=== PATIENT | female | born 1965 | race Caucasian/White ===

== ENCOUNTER 2021-01-15 15:10 | Outpatient (CLI) | payer OTHER, SELFPAY ==
--- NOTE | ~2021-01-15 | MM_ITS ---
EXAMINATION: MM screening [facility] BI w [facility] HISTORY: Screening mammogram TECHNIQUE: Craniocaudal and mediolateral oblique 3-D tomosynthesis images were obtained and synthetic 2-D images were generated. CAD analysis was submitted and interpreted. COMPARISON: 08/11/2017, 08/03/2012, 11/23/2009 BREAST PARENCHYMAL COMPOSITION: There are scattered areas of fibroglandular density. FINDINGS: There is no evidence of suspicious mass, calcification, or architectural distortion to sugg est malignancy in either breast. There has been no suspicious interval change. IMPRESSION: 1. No mammographic evidence of malignancy. 2. Recommend routine screening mammography in one year. BI-RADS Category 1: Negative Reviewed, dictated and finalized at location A.
== END 2021-01-15 15:11 | disposition home or self-care (01) ==
PROVIDERS: PCP Family Medicine; Visit Provider Family Medicine
DX: Z12.31 Encounter for screening mammogram for malignant neoplasm of breast (principal)
CPT/HCPCS: 77063; 77067

== ENCOUNTER 2021-03-11 01:20 | Day surgery (SDC) | payer OTHER, SELFPAY ==
[2021-02-27 12:37] VITALS: BMI 24.1
--- NOTE | 2021-03-11 07:03 | WPDANESEPPF ---
Anes - Initial Pre Proc Eval Procedure: Operation Date: 03/11/21 09:30 Proposed Procedures p Screening Colonoscopy - Geo Thompson MD Date/Time: 03/11/21 07:03 Surgeon: Geo Thompson MD Pre Op Diagnosis: family hx of colon ca Patient Data Age: 55 Gender: F Height: 1.63 m Weight: 63.8 kg Allergies Allergy/AdvReac Type Severity Reaction Status Date / Time No Known Allergies Allergy Unknown Verified 03/11/21 08:49 Home Medications Medication Instructions Recorded Confirmed Type cetirizine 10 mg tablet 10 mg PO DAILY 01/18/20 03/11/21 History estradiol 1 mg tablet See Rx Instructions .ROUTE 12/25/20 03/11/21 Rx .COMPLEX #90 tablet diclofenac sodium 75 mg 75 mg PO BID #60 tablet 02/05/21 03/11/21 Rx tablet,delayed release bupropion HCl 300 mg 24 hr tablet, 300 mg PO QAM #90 tablet 02/19/21 03/11/21 Rx extended release cyclobenzaprine 10 mg PO DAILY PRN 02/27/21 03/11/21 History fluticasone propionate 1 spray NASAL Q12H PRN 02/27/21 03/11/21 History lorazepam [Ativan] 0.5 mg PO DAILY 02/27/21 03/11/21 History topiramate 100 mg PO BID 02/27/21 03/11/21 History Patient hx anesthesia problems: none Family hx anesthesia problems: none PMFSH Past Medical History Medical History (Updated 03/11/21 @ 08:55 by Geo Thompson MD) GERD (gastroesophageal reflux disease) Hypertension Surgical History Surgical History (Updated 03/11/21 @ 07:04 by Fazal Govea DO) History of History of cholecystectomy History of hysterectomy Family History Family History Father Patient's father is , Onset Age: 67 Mother Carcinoma of colon, Onset Age: 66 Other Diabetes mellitus Family history of malignant neoplasm of breast Hypertension Social History Social History (Updated 02/27/21 @ 12:33 by Amna Polanco RN) Smoking status: Never smoker Alcohol intake: current Drinks per week: 4 Alcohol use details: once weekly Substance use: never Substance use type: does not use Living arrangements: with family Gender identity (if verbalized by the patient): Female Spiritual care concerns: No Anes - Eval Final PreProcedure Day of Procedure 03/11/21 07:03 Patient weight: normal Heart: regular rate and rhythm Lungs: clear to auscultation and normal air movement Airway: Mallampati scale class II Neurological: alert and oriented Last oral intake: >/= 8 hours ASA classification: II Emergent: no Anesthetic plan: proceed Anesthesia type and monitoring: general GIVS and standard monitoring Informed Consent: The patient's anesthetic plan and its attendant risks and benefits were discussed with the patient/family/POA. Questions were solicited and answers provided to the satisfaction of the patient/family/POA.
[2021-03-11 08:50] VITALS: BP 114/89; PULSE 79; RESP 16; TEMP 36.1; O2SAT 100
--- NOTE | 2021-03-11 08:53 | WPDGICN ---
Assessment and Plan Assessment and plan (1) Family history of colon cancer in mother: Code(s): Z80.0 - Family history of malignant neoplasm of digestive organs Status: Acute Assessment and Plan: Patient is a family history of colon cancer in her mother. For this reason screening colonoscopy is advised at 5 year intervals. GI Consult Note Consult date/time: 03/11/21 08:53 HPI: Leeanne Mercado is a 55 year old female Presents for screening colonoscopy. Patient reports that her mother had colon cancer. Patient typically has screening colonoscopies every 5 years. Most recent exam was in [address] Villalobos. Patient reports that her bowel habits are normal. She denies abdominal pain. She has had no bleeding. Patient's daughter apparently has had a bowel motility issue and has had a subtotal colectomy at [facility]. No history of colon polyps or inherited GI disease is described. Review of Systems Review of Systems: All systems reviewed & are unremarkable except as noted in HPI and below PMFSH Past Medical History Medical History (Updated 03/11/21 @ 08:55 by Geo Thompson MD) GERD (gastroesophageal reflux disease) Hypertension Surgical History Surgical History (Updated 03/11/21 @ 07:04 by Fazal Govea DO) History of History of cholecystectomy History of hysterectomy Family History Family History Father Patient's father is , Onset Age: 67 Mother Carcinoma of colon, Onset Age: 66 Other Diabetes mellitus Family history of malignant neoplasm of breast Hypertension Social History Social History (Updated 02/27/21 @ 12:33 by Amna Polanco RN) Smoking status: Never smoker Alcohol intake: current Drinks per week: 4 Alcohol use details: once weekly Substance use: never Substance use type: does not use Living arrangements: with family Gender identity (if verbalized by the patient): Female Spiritual care concerns: No Meds Home Medications and Allergies Home Medications Medication Instructions Recorded Confirmed Type cetirizine 10 mg tablet 10 mg PO DAILY 01/18/20 02/27/21 History estradiol 1 mg tablet See Rx Instructions .ROUTE 12/25/20 02/27/21 Rx .COMPLEX #90 tablet diclofenac sodium 75 mg 75 mg PO BID #60 tablet 02/05/21 02/27/21 Rx tablet,delayed release bupropion HCl 300 mg 24 hr tablet, 300 mg PO QAM #90 tablet 02/19/21 02/27/21 Rx extended release cyclobenzaprine 10 mg PO DAILY PRN 02/27/21 02/27/21 History fluticasone propionate 1 spray NASAL Q12H PRN 02/27/21 02/27/21 History lorazepam 0.5 mg PO DAILY 02/27/21 02/27/21 History topiramate 100 mg PO BID 02/27/21 02/27/21 History Allergies Allergy/AdvReac Type Severity Reaction Status Date / Time No Known Allergies Allergy Unknown Verified 03/11/21 08:49 Exam Narrative: Physical exam reveals patient to be alert. Vital signs stable. HEENT exam is unremarkable. Patient is anicteric. Lungs are clear to auscultation and percussion. Heart is without murmur or extra sounds. Abdominal exam bowel sounds are present soft nontender with no organomegaly. Digital external rectal exam is normal.
[2021-03-11] MEDS: LACTATED RINGERS 1,000 ML 150 ML IV CONT (09:12)
[2021-03-11 09:46] VITALS: BP 87/54; PULSE 69; RESP 18; O2SAT 100
[2021-03-11 09:56] VITALS: BP 93/58; PULSE 78; RESP 26; O2SAT 100
[2021-03-11 10:06] VITALS: BP 105/73; PULSE 69; RESP 14; O2SAT 100
== END 2021-03-11 10:19 | disposition home or self-care (01) ==
PROVIDERS: PCP Family Medicine; Visit Provider Internal Medicine Gastroenterology
PROC: 0DJD8ZZ Inspection of Lower Intestinal Tract, Via Natural or Artificial Opening Endoscopic (ICD-10-PCS; CPT 45378; principal; 2021-03-11 09:30)
DX: Z12.11 Encounter for screening for malignant neoplasm of colon (principal); Z80.0 Family history of malignant neoplasm of digestive organs; K64.8 Other hemorrhoids; K21.9 Gastro-esophageal reflux disease without esophagitis; I10 Essential (primary) hypertension
CPT/HCPCS: 45378; J2704; J7120

== ENCOUNTER 2022-06-08 05:50 | Emergency (ER) | payer OTHER, SELFPAY ==
--- NOTE | ~2022-06-08 | XR_ITS ---
XR chest 1V portable DATE: 06/08/2022 06:44 INDICATION: Cough, fever TECHNIQUE: Portable AP chest on 06/08/2022 at 0641 hours COMPARISON: None FINDINGS: Heart size is within normal limits. Mild aortic tortuosity. No hilar or mediastinal enlarge ment. No pulmonary infiltrate or consolidation, pleural effusion or pulmonary vascular congestion or pneumo thorax is detected. Status post cholecystectomy. IMPRESSION: No active cardiopulmonary disease Reviewed, dictated and finalized at location A. P CUTTER
[2022-06-08 05:59] VITALS: BP 127/85; PULSE 99; RESP 18; TEMP 37.3; O2SAT 99
--- NOTE | 2022-06-08 06:26 | ED.URI ---
HPI - URI/Sore Throat General Chief Complaint: Upper Respiratory Infection Stated Complaint: fever, cough, sore throat, body aches Time Seen by Provider: 06/08/22 06:13 History of Present Illness HPI Narrative: Patient is a 56-year-old female presenting with URI symptoms. Patient states that for the last several days she has had intermittent fevers, sore throat, diffuse body aches, cough. States she is concerned that she has COVID or the flu. She denies chest pain or shortness of breath. States that food taste metallic but has not had any vomiting. States she has been drinking plenty of fluids. She denies headaches, abdominal pain, dysuria, diarrhea, leg swelling. Related Data Allergies Allergy/AdvReac Type Severity Reaction Status Date / Time No Known Allergies Allergy Unknown Verified 04/21/22 09:17 Review of Systems Review of Systems: All systems reviewed & are unremarkable except as noted in HPI and below PMFSH Past Medical History Medical History GERD (gastroesophageal reflux disease) Hypertension Surgical History Surgical History History of History of cholecystectomy (~01/16/14) History of hysterectomy History of right oophorectomy Family History Family History Father Patient's father is , Onset Age: 67 Mother Carcinoma of colon, Onset Age: 66 Other Diabetes mellitus Family history of malignant neoplasm of breast Hypertension Social History Social History Social History: Caffeine- coffee Smoking status: Never smoker Alcohol intake: current Drinks per week: 4 Alcohol use details: once/twice weekly Substance use: never Substance use type: does not use Gender identity (if verbalized by the patient): Female Spiritual care concerns: No Exam Narrative: GENERAL: Well-appearing, well-nourished, and in no acute distress. HEAD: Normocephalic, atraumatic. EYES: PERRLA and EOMI. ENT: Nares clear, no rhinorrhea or epistaxis. Mucous membranes moist. NECK: Supple. CHEST: Clear to auscultation. No respiratory distress. HEART: Regular rate and rhythm. No murmur heard. Normal peripheral pulses. ABDOMEN: Soft, nontender, nondistended, normal active bowel sounds. EXTREMITIES: Normal range of motion. No edema. SKIN: Warm, dry, no rash. NEURO: No focal deficits. Alert and oriented x3. PSYCH: Normal mood and affect. Course Vital Signs Vital signs: Vital Signs Temperature 99.2 F 06/08/22 05:59 Pulse Rate 99 06/08/22 05:59 Respiratory Rate 18 06/08/22 05:59 Blood Pressure 127/85 06/08/22 05:59 Pulse Oximetry 99 06/08/22 05:59 Temperature 99.2 F 06/08/22 05:59 Pulse Rate 96 06/08/22 07:03 Respiratory Rate 16 06/08/22 07:03 Blood Pressure 110/64 06/08/22 07:03 Pulse Oximetry 100 06/08/22 07:03 MDM - URI/Sore Throat MDM Narrative Medical decision making narrative: Patient is a 56-year-old female presenting with URI symptoms. Vitals are within normal limits. Patient is nontoxic and in no acute distress. Plan to test her for COVID and flu and obtain chest x-ray. We will give her Tylenol and ibuprofen for symptomatic control. Patient is positive for influenza A. Chest x-ray shows no focal consolidations, effusions, or other abnormalities. Discussed appropriate supportive care. Advised Tylenol and ibuprofen for fever and muscle aches. Appropriate return precautions given. Recommended PCP follow-up. Patient voiced understanding and is agreeable with plan. Discharged in stable condition. Lab Data Labs: Lab Results 06/08/22 Range/Units 06:01 Influenza A (RT-PCR) Positive (Negative) Influenza B (RT-PCR) Negative (Negative) SARS-CoV-2 RNA (RT-PCR) Negative
[2022-06-08 06:41] LABS: Influenza A QL RT-PCR Positive (Negative); Influenza B QL RT-PCR Negative (Negative); SARS-CoV-2 RNA PCR Negative
[2022-06-08 06:50] VITALS: BP 110/64; PULSE 90; RESP 18; O2SAT 98
[2022-06-08] MEDS: ACETAMINOPHEN 500 MG TABLET 1000 MG PO (07:01)
[2022-06-08] MEDS: IBUPROFEN 600 MG TABLET PO (07:01)
[2022-06-08 07:03] VITALS: BP 110/64; PULSE 96; RESP 16; O2SAT 100
== END 2022-06-08 07:04 | disposition home or self-care (01) ==
PROVIDERS: Emergency Provider Emergency Medicine; PCP Family Medicine
DX: J10.1 Influenza due to other identified influenza virus with other respiratory manifestations (principal); Z20.822 Contact with and (suspected) exposure to COVID-19; I10 Essential (primary) hypertension; K21.9 Gastro-esophageal reflux disease without esophagitis; Z90.710 Acquired absence of both cervix and uterus; Z90.721 Acquired absence of ovaries, unilateral
CPT/HCPCS: 71045; 87636; 99283; A9270

== ENCOUNTER 2022-10-24 10:07 | Outpatient (CLI) | payer OTHER, SELFPAY ==
--- NOTE | ~2022-10-24 | MM_ITS ---
EXAMINATION: MM screening [facility] w [facility] HISTORY: Screening mammogram TECHNIQUE: Craniocaudal and mediolateral oblique 3-D tomosynthesis images were obtained and synthetic 2-D images were generated. CAD analysis was submitted and interpreted. COMPARISON: 01/15/2021, 08/11/2017 bilateral screening mammogram examinations BREAST PARENCHYMAL COMPOSITION: There are scattered areas of fibroglandular density. FINDINGS: There is no evidence of suspicious mass, calcification, or architectural distortion to sugg est malignancy in either breast. There has been no suspicious interval change. IMPRESSION: 1. No mammographic evidence of malignancy. 2. Recommend routine screening mammography in one year. BI-RADS Category 1: Negative Reviewed, dictated and finalized at location A.
== END 2022-10-24 10:08 | disposition home or self-care (01) ==
LOC: ANHIMG 10:11
PROVIDERS: PCP Family Medicine; Visit Provider Family Medicine
DX: Z12.31 Encounter for screening mammogram for malignant neoplasm of breast (principal)
CPT/HCPCS: 77063; 77067

== ENCOUNTER 2023-09-09 06:06 | Day surgery (SDC) | payer OTHER, SELFPAY ==
[2023-09-02 14:54] VITALS: BMI 25.0
[2023-09-03 10:57] VITALS: BMI 25.0
[2023-09-09 06:48] VITALS: BP 115/84; PULSE 85; RESP 14; TEMP 37.3; O2SAT 100
[2023-09-09] MEDS: LACTATED RINGERS 1,000 ML 150 ML IV CONT (06:50)
--- NOTE | 2023-09-09 07:03 | PM.HPGS ---
History of Present Illness History of Present Illness Consent: Risks, benefits, and alternatives have been discussed and questions answered. Patient agrees to proceed with procedure. Chief complaint: Gerd without Esophagitis, Esophageal Stricture Narrative: Leeanne Mercado is a 57 year old female presents for EGD. Patient reports difficulty swallowing meat for several years. Food will catch in the mid substernal portion of the chest. Typically this check inter more solid food. He has noted acid regurgitation. Occasional heartburn. She takes Tums for relief. Family history is noncontributory. Patient's mother had colon cancer. Recent colonoscopy 2 years ago was unremarkable. Review of Systems Review of Systems: Review of systems noncontributory. [facility] Past Medical History Medical History (Updated 09/09/23 @ 07:05 by Geo Thompson MD) GERD (gastroesophageal reflux disease) Hypertension Surgical History Surgical History History of History of cholecystectomy (~01/16/14) History of hysterectomy History of right oophorectomy Family History Family History Father Patient's father is , Onset Age: 67 Mother Carcinoma of colon, Onset Age: 66 Other Diabetes mellitus Family history of malignant neoplasm of breast Hypertension Social History Social History Social History: Caffeine- coffee Smoking status: Never smoker Alcohol intake: current Drinks per week: 4 Alcohol use details: occasional Substance use: never Substance use type: does not use Lack of Transportation: No Lack of Food: Never True Current Housing: I Have Housing Concerned About Future Housing: No Difficulty Paying Gas/Electric Bills: YES Difficulty Paying for Meds: No Currently Unemployed: No Education: High School Diploma/GED Difficulty w/ Childcare or Family Care: No Living arrangements: alone Gender identity (if verbalized by the patient): Female Spiritual care concerns: No Meds Home Medications and Allergies Home Medications Medication Instructions Recorded Confirmed Type topiramate 100 mg tablet (Topamax) 100 mg PO BID #180 tabs 08/21/22 09/09/23 Rx erenumab-aooe 70 mg/mL 70 mg subcut MONTHLY #3 mL 09/11/22 09/09/23 Rx subcutaneous auto-injector (Aimovig Autoinjector) fluticasone propionate 50 2 spray intranasal DAILY #16 grams 01/16/23 09/09/23 Rx mcg/actuation nasal spray,suspension (Allergy Relief (fluticasone)) meloxicam 15 mg tablet 15 mg PO DAILY #90 tabs 02/16/23 09/09/23 Rx estradiol 1 mg tablet See Rx Instructions .Route 03/20/23 09/09/23 Rx .COMPLEX #90 tabs estradiol 10 mcg vaginal tablet 10 mcg vaginal 2XW #30 tabs 03/20/23 09/09/23 Rx (Vagifem) estradiol 0.01% (0.1 mg/gram) 1 g vaginal 2XW #42.5 grams 03/25/23 09/09/23 Rx vaginal cream cyclobenzaprine 10 mg tablet See Rx Instructions .Route 06/01/23 09/09/23 Rx .COMPLEX #30 tabs lorazepam 0.5 mg tablet (Ativan) 0.5 mg PO BID PRN anxiety #40 tabs 06/01/23 09/09/23 Rx bupropion HCl 150 mg 24 hr tablet, 150 mg PO QAM #90 tabs 08/31/23 09/09/23 Rx extended release bupropion HCl 300 mg 24 hr tablet, 300 mg PO QAM #90 tabs 08/31/23 09/09/23 Rx extended release Allergies Allergy/AdvReac Type Severity Reaction Status Date / Time No Known Allergies Allergy Unknown Verified 09/09/23 06:36 Vital Signs Vital Signs - 24 hr 09/09/23 06:48 Temperature 99.2 F Pulse Rate 85 Respiratory Rate 14 Blood Pressure 115/84 Pulse Oximetry 100 Oxygen Delivery Room Air Exam Narrative: Physical exam reveals patient to be alert. Vital signs stable. HEENT exam is unremarkable. Patient is anicteric. Lungs are clear to auscultation and percussion. Heart is without murmur or ex
--- NOTE | 2023-09-09 07:51 | WPDANESEPPF ---
Anes - Initial Pre Proc Eval Procedure: Operation Date: 09/09/23 08:00 Proposed Procedures p Esophagogastroduodenoscopy - Geo Thompson MD Date/Time: 09/09/23 07:51 Surgeon: Geo Thompson MD Pre Op Diagnosis: Gerd without Esophagitis, Esophageal Stricture Patient Data Age: 57 Gender: F Height: 1.63 m Weight: 63.55 kg Last Vital Signs Temp 37.3 C 09/09/23 06:48 Pulse 85 09/09/23 06:48 Resp 14 09/09/23 06:48 BP 115/84 09/09/23 06:48 Pulse Ox 100 09/09/23 06:48 O2 Del Method Room Air 09/09/23 06:48 Allergies Allergy/AdvReac Type Severity Reaction Status Date / Time No Known Allergies Allergy Unknown Verified 09/09/23 06:36 Home Medications Medication Instructions Recorded Confirmed Type topiramate 100 mg tablet (Topamax) 100 mg PO BID #180 tabs 08/21/22 09/09/23 Rx erenumab-aooe 70 mg/mL 70 mg subcut MONTHLY #3 mL 09/11/22 09/09/23 Rx subcutaneous auto-injector (Aimovig Autoinjector) fluticasone propionate 50 2 spray intranasal DAILY #16 grams 01/16/23 09/09/23 Rx mcg/actuation nasal spray,suspension (Allergy Relief (fluticasone)) meloxicam 15 mg tablet 15 mg PO DAILY #90 tabs 02/16/23 09/09/23 Rx estradiol 1 mg tablet See Rx Instructions .Route 03/20/23 09/09/23 Rx .COMPLEX #90 tabs estradiol 10 mcg vaginal tablet 10 mcg vaginal 2XW #30 tabs 03/20/23 09/09/23 Rx (Vagifem) estradiol 0.01% (0.1 mg/gram) 1 g vaginal 2XW #42.5 grams 03/25/23 09/09/23 Rx vaginal cream cyclobenzaprine 10 mg tablet See Rx Instructions .Route 06/01/23 09/09/23 Rx .COMPLEX #30 tabs lorazepam 0.5 mg tablet (Ativan) 0.5 mg PO BID PRN anxiety #40 tabs 06/01/23 09/09/23 Rx bupropion HCl 150 mg 24 hr tablet, 150 mg PO QAM #90 tabs 08/31/23 09/09/23 Rx extended release bupropion HCl 300 mg 24 hr tablet, 300 mg PO QAM #90 tabs 08/31/23 09/09/23 Rx extended release Patient hx anesthesia problems: none Family hx anesthesia problems: other (slow to awaken) Results Review: All pre-operative results and documents have been reviewed as part of the pre-operative evaluation. [facility] Past Medical History Medical History GERD (gastroesophageal reflux disease) Hypertension Surgical History Surgical History History of History of cholecystectomy (~01/16/14) History of hysterectomy History of right oophorectomy Family History Family History Father Patient's father is , Onset Age: 67 Mother Carcinoma of colon, Onset Age: 66 Other Diabetes mellitus Family history of malignant neoplasm of breast Hypertension Social History Social History Social History: Caffeine- coffee Smoking status: Never smoker Alcohol intake: current Drinks per week: 4 Alcohol use details: occasional Substance use: never Substance use type: does not use Lack of Transportation: No Lack of Food: Never True Current Housing: I Have Housing Concerned About Future Housing: No Difficulty Paying Gas/Electric Bills: YES Difficulty Paying for Meds: No Currently Unemployed: No Education: High School Diploma/GED Difficulty w/ Childcare or Family Care: No Living arrangements: alone Gender identity (if verbalized by the patient): Female Spiritual care concerns: No Anes - Eval Final PreProcedure Day of Procedure 09/09/23 07:51 Patient weight: normal Heart: regular rate and rhythm Lungs: clear to auscultation Airway: Mallampati scale class II Neurological: alert and oriented Last oral intake: >/= 8 hours ASA classification: III Emergent: no Anesthetic plan: proceed Anesthesia type and monitoring: general GIVS and standard monitoring Results Review: All pre-operative results and
[2023-09-09 08:09] VITALS: BP 102/78; PULSE 87; RESP 14; O2SAT 100
[2023-09-09 08:19] VITALS: BP 105/78; PULSE 81; RESP 14; O2SAT 100
[2023-09-09 08:29] VITALS: BP 107/76; PULSE 79; RESP 14; O2SAT 100
--- NOTE | 2023-09-09 08:57 | WPDANESPN ---
Anes - Prog Note Post-Op Date/Time: 09/09/23 08:57 Cardiovascular status: normal Respiratory status: normal Airway patency: baseline Mental status: baseline Post-Op hydration status: normal Vital Signs: Last Vital Signs Temp 37.3 C 09/09/23 06:48 Pulse 79 09/09/23 08:29 Resp 14 09/09/23 08:29 BP 107/76 09/09/23 08:29 Pulse Ox 100 09/09/23 08:29 O2 Del Method Room Air 09/09/23 08:29 Pain Score (VAS): 0 I/O: Intake & Output 09/08/23 09/09/23 09/09/23 23:59 07:59 15:59 Intake Total 450 Balance 450 Patient Feedback: Patient satisfied with anesthetic care.
== END 2023-09-09 08:39 | disposition home or self-care (01) ==
PROVIDERS: PCP Family Medicine; Visit Provider Internal Medicine Gastroenterology
PROC: 0DJ08ZZ Inspection of Upper Intestinal Tract, Via Natural or Artificial Opening Endoscopic (ICD-10-PCS; CPT 43235; principal; 2023-09-09 08:00)
DX: K21.9 Gastro-esophageal reflux disease without esophagitis (principal); R13.19 Other dysphagia; Q39.4 Esophageal web; K29.60 Other gastritis without bleeding
CPT/HCPCS: 43450; 43239

== ENCOUNTER 2023-11-17 08:45 | Outpatient (RCR) | payer OTHER, SELFPAY ==
--- NOTE | 2023-09-08 14:59 | PTOPEVAL1 ---
Assessment and note entered by Kendra Lopez, PT Evaluation Information Assessment Status Evaluation Diagnosis Pain in unspecified hip, oth. bursitis of hip (L). Pain in right hip and left hip, weakness Onset 6 years Subjective Information Is having trouble sleeping. sleeping on right side but is waking her up. Flips over on left and this doesn't work, can't sleep on stomach Left hip started about 6 years ago and right hip began hurting about 2 years ago. 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 Has Meloxicam but this bothers her stomach so doesn't take it often secondary to side effects on stomach. 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 Evaluation shows significantly reduced ROM left hip, and mild/moderately reduced right hip ROM. Demo's good hip extension strength however gluteus medius is not activating appropriately with hip abduction testing. Pt has been educated on initial HEP, cryotherapy, and appropriate arch support for improved kinematic alignment to off load the tension of the tensor fascialata. Pt will greatly benefit form physical therapy in order to address deficits, improve pain, and thus improve sleep and function at work. Plan of Care Interventions Electrical Stimulation,Hot Pack/Cold Pack,Manual Therapy,Neuro Re-education,Patient/Caregiver Educati,Therapeutic Activities,Therapeutic Exercise,Ultrasound PT Services Indicated Yes Treatment Frequency and 1-2x weekly for 12 visits Duration These treatments will address the objective and functional deficits as defined above. The patient will be advanced safely and appropriately in order for the patient to progress towards his/her prior level of function. Additional exercises will be introduced and as well as a comprehensive home exercise program upon discharge, if needed, ?to ensure carryover of functional gains achieved in the clinic. This treatment plan has been reviewed
--- NOTE | 2023-09-08 15:00 | OPREHPOC ---
Outpatient Therapy Plan of Care This is a Multidisciplinary Plan of Care that may contain components documented by all disciplines (PT, OT, and ST.) PT Problem 1 PT Problem #1 Knowledge Deficit PT Goal 1 Goal Pt will be independent in HEP Pt will verbalize understanding of diagnosis and prognosis Target Visit 12 PT Problem 2 PT Problem #2 Pain PT Goal 1 Goal Pt will report greatest pain level at 6/10 or less to improve ADLs and activities Target Visit 8 PT Goal 2 Goal Pt will report greatest pain level at 2/10 or less to improve ADLs and activities Target Visit 12 PT Problem 3 PT Problem #3 Impaired Range of Motion PT Goal 1 Goal Pt will demo hip flexion passive ROM of 110 or greater Target Visit 8 PT Goal 2 Goal Pt will demo ROM of left hip equal to right hip Target Visit 12 PT Problem 4 PT Problem #4 Impaired Strength PT Goal 1 Goal Pt will demo appropriate activation for gluteus medius bilaterally to offload tensor fascialata Target Visit 8 PT Goal 2 Goal Pt will demo gluteus medius strength of 4/5 bilat to improve ADLs and activities Target Visit 12
--- NOTE | 2023-10-19 15:39 | PTOPPROG ---
Assessment and note entered by Kendra Lopez, PT Evaluation Information Assessment Status Progress Diagnosis Pain in unspecified hip, oth. bursitis of hip (L). Therapy Condition pain in left and right hip weakness Onset 6 years Subjective Information Perceived improvement: Doesn't think is going to ever get 100% better because of the arthritis but thinks is 50% better overall. Definitely feeling a lot better, sleeping better at night much better on crossing legs without pain, driving is painless, standing is much better uses ice while standing, much better twisting on the hips. Notes sitting for long periods then upon standing will catch yourself a bit then walks normally Pt states she has her heel lifts acquired but hasn 't put them in her left shoe yet as she needs new shoes and the heel lift has sticky bottom for placement in shoe. 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 Assessment PT Clinical Summary Patient has attended therapy consistently for bilateral hip pain and arthritis. She reports feeling 50% improved overall, is sleeping better at night and has less pain during the day. Pain now ranges from 0-4/10 versus 1-9/10 range. Demo's improved strength as well in multiple areas and improved range. 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 Pt will benefit from continued therapy as she is progressing in her goals and has yet to plateau in her progression making it likely she will continue to improve. Plan of Care Interventions Electrical Stimulation,Hot Pack/Cold Pack,Manual Therapy,Neuro Re-education,Patient/Caregiver Educati,Therapeutic Activities,Therapeutic Exercise,Ultrasound PT Services Indicated Yes Treatment Frequency and Cont 1-2 x weekly x 6 weeks Duration These treatments will address the objective and functional deficits as defined above. The patient will be advanced safely and appropriately in order for the patient to progress towards his/her prior level of function. Additional exercises will be introduced and as well as a comprehensive home exercise program upon discharge, if needed, ?to ensure carryover of functional gains achieved in the clinic. This treatment plan has been reviewed and agreement u
--- NOTE | 2023-11-17 09:35 | PTOPDC ---
Assessment and note entered by Kendra Lopez, PT Assessment Status Discharge Diagnosis Pain in unspecified hip, oth. bursitis of hip (L). Onset 6 years Subjective Information 11/17/23 discharge feels 75% improved overall. 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 Really feels the new shoes, new insoles, and heel lift has helped. Reports long days, 12 hours yesterday standing in one place. Reports only using ice as needed. 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 Reported Pain Level Pain Score 0,2,1: Self Report Assessment PT Clinical Summary Pt has attended therapy consistently for dixie hip pain and back pain. She reports feeling 75% improved overall. Reports has 0/10 pain most of the time, only increases to 4/10 with increased activity as noted above. Reports icing resolves issue. Pt demo's increased ROM dixie hips, increase strength dixie hips, improved soft tissue extensibility and tonicity. She has met most of her goals. She has francisco educated in her home exercise plan, maintenance of progress, and when to return to therapy. Thus patient is being discharged from therapy due to completion of plan of care. Plan of Care PT Services Indicated No
== END 2023-11-20 16:15 | disposition home or self-care (01) ==
LOC: ANHHIPT 08:45
PROVIDERS: PCP Family Medicine; Visit Provider Family Medicine
DX: M70.72 Other bursitis of hip, left hip (principal); M25.559 Pain in unspecified hip
CPT/HCPCS: 97014; 97110; 97112; 97140; 97162; 97750; G0283

== ENCOUNTER 2024-04-25 16:30 | Outpatient (CLI) | payer OTHER, SELFPAY ==
--- NOTE | ~2024-04-25 | XR_ITS ---
EXAMINATION: XR shoulder RT min 2V DATE: 04/25/2024 16:48 INDICATION: Right shoulder pain. TECHNIQUE: 4 views of right shoulder were obtained. COMPARISON: None. FINDINGS: Alignment is normal. No fracture. There is mild osteoarthritis of glenohumeral joint and se sandra osteoarthritis of acromioclavicular joint. IMPRESSION: 1. Polyarticular osteoarthritis. Reviewed, dictated and finalized at location A.
== END 2024-04-25 16:31 | disposition home or self-care (01) ==
LOC: ANHIMG 16:35
PROVIDERS: PCP Family Medicine; Visit Provider Nurse Practitioner Family
DX: M25.511 Pain in right shoulder (principal)
CPT/HCPCS: 73030

== ENCOUNTER 2024-07-19 14:06 | Outpatient (CLI) | payer OTHER, SELFPAY ==
--- NOTE | ~2024-07-19 | XR_ITS ---
XR_[id number]_[id number] Ordering provider: CAITLYN Camarena History: . M54.2 - Cervicalgia CHRONIC W/RECENT H/A'S . Comparison: None. FINDINGS: VERTEBRAL BODIES: Normal height and alignment. No visible fracture or subluxation. The dens is intact . DISK SPACES: Narrowing of the disc C4-C5, C5-C6 and C6-C7. Multilevel uncovertebral joint osteoarthri tic changes. PARASPINOUS SOFT TISSUES: No prevertebral soft tissue swelling. IMPRESSION: No acute osseous abnormality cervical spine. Multilevel degenerative disc disease. Reviewed, dictated and finalized at location A. REAL SCIENTIST
== END 2024-07-19 14:07 | disposition home or self-care (01) ==
PROVIDERS: PCP Family Medicine; Visit Provider Nurse Practitioner Family
DX: M50.321 Other cervical disc degeneration at C4-C5 level (principal); M50.322 Other cervical disc degeneration at C5-C6 level; M50.323 Other cervical disc degeneration at C6-C7 level
CPT/HCPCS: 72040

== ENCOUNTER 2024-09-08 15:47 | Outpatient (CLI) | payer OTHER, SELFPAY | END 2024-09-08 15:48 | disposition home or self-care (01) | PROVIDERS: PCP Family Medicine; Visit Provider Nurse Practitioner Family | DX: M54.2 Cervicalgia (principal); G43.101 Migraine with aura, not intractable, with status migrainosus | CPT/HCPCS: 70551 ==

== ENCOUNTER 2024-09-20 14:14 | Outpatient (CLI) | payer OTHER, SELFPAY ==
--- OUTSIDE RECORDS SUMMARY | 2024-09-20 16:03 | XMS_ITS | Encounter Summary ---
Author Organization [facility] Address [address] [place] [address] Care Team Providers Care Dust Box Worker Name Role Phone Napoleon Shabazz MD Primary Care Provider +1- [phone] Encounter Details Date Type Department Care Team (Late st Contact Info) Description 02/21/2015 Abstract [facility] CONVERSION [address] [place] [address] , Generic Conversion, Social History Tobacco Use Types Packs/Day Years Used Date Smoking Tobacco: Never Assessed Comments Unknown Sex and Gender Information Value Date Recorded Sex Assigned at Not on file Legal Sex Female 6:00 PM CDT Gender Identity Not on file Sexual Orientation Not on file documented as of this encounter Plan of Treatment Not on file documented as of this encounter Visit Diagnoses Not on filedocumented in this encounter Additional Health Concerns Infection Onset Date Last Indicated Resolved Time MRSA 08/01/2018 08/01/2018 documented as of this encounter Care Teams Dust Box Worker Relationship Specialty Start Date End Date Napoleon Shabazz MD [address] [facility] [address] [address] PCP - General FAMILY PRACTICE 05/17/24 documented as of this encounter
--- OUTSIDE RECORDS SUMMARY | 2024-09-20 16:03 | XMS_ITS | Clinical Summary ---
Author Organization [facility] Address [address] [place] [address] Care Team Providers Care Dry Cans Operator Name Role Phone Napoleon Shabazz MD Primary Care Provider +1- [phone] Medications topiramate (TOPAMAX) 100 MG tablet Take 1 tablet (100 mg total) by mouth daily. Active estradiol (ESTRACE) 1 MG tablet Take 1 tablet (1 mg total) by mouth daily. Active LORazepam (ATIVAN) 0.5 MG tablet Take 1 tablet (0.5 mg total) by mouth 2 (two) times daily as needed for Anxiety. Active fluticasone propionate (FLONASE) 50 MCG/ACT nasal spray Active erenumab-aooe (AIMOVIG) 70 mg/mL injection (autoinjector) Inject 1 mL (70 mg total) into the skin every 30 (thirty) days. Active cyclobenzaprine (FLEXERIL) 10 MG tablet Take 1 tablet (10 mg total) by mouth every evening. Active omeprazole (PRILOSEC) 20 MG capsule Take 1 capsule (20 mg total) by mouth daily. Active nitrofurantoin, macrocrystal-mo nohydrate, (MACROBID) 100 MG capsule Take 1 capsule (100 mg total) by mouth as needed. Active Immunizations Name Administration Dates Next Due Tdap (Boostrix) 05/17/2024 Social History Tobacco Use Types Packs/Day Years Used Date Smoking Tobacco: Never Assessed Comments Unknown Sex and Gender Information Value Date Recorded Sex Assigned at Not on file Legal Sex Female 6:00 PM CDT Gender Identity Not on file Sexual Orientation Not on file Last Filed Vital Signs Vital Sign Reading Time Taken Comments Blood Pressure 107/74 05/17/2024 8:01 PM SUPERINTENDENT JOB Pulse 66 05/17/2024 8:01 PM SUPERINTENDENT JOB Temperature 36.3 C (97.3 F) 05/17/2024 8:01 PM SUPERINTENDENT JOB Respiratory Rate 18 05/17/2024 8:01 PM SUPERINTENDENT JOB Oxygen Saturation 99% 05/17/2024 8:01 PM SUPERINTENDENT JOB Inhaled Oxygen Concentration - - Weight 67.1 kg (148 lb) 05/17/2024 5:58 PM SUPERINTENDENT JOB Height 162.6 cm (5' 4 ) 05/17/2024 5:58 PM SUPERINTENDENT JOB Body Mass Index 25.4 05/17/2024 5:58 PM SUPERINTENDENT JOB Plan of Treatment Health Maintenance Due Date Last Done Comments Colorectal Cancer Screening Colonoscopy (10 Years) 1963 Annual Physical 12/27/1966 Hepatitis C 12/27/1981 Mammogram Screening 2003 COVID-19 Vaccine ( - 2023-2 5 season) 2024 04/28/2023, 06/22/2021, 09/20/2020 Influenza Adult (#1) 2024 04/21/2022 Zoster Vaccines (2 of 2) 06/01/2024 04/06/2024 DTaP, Tdap and Td Vaccines ( 2 - Td or Tdap) 05/17/2034 05/17/2024 RSV Immunization or 60+ Years (1 - 1-dose 75+ series) 12/27/2038 Meningococcal B Vaccine Aged Out No l onger eligible based on patient's age to complete this topic Meningococcal Vaccine Aged Out No carlos mariela eligible based on patient's age to complete this topic Pneumococcal Vaccine: Pediatrics (0 to 5 Years) and At-Risk Patients (6 to 64 Years) Aged Out No longer eligible b ased on patient's age to complete this topic RSV Immunizations Under 20 Months Aged Out No longer eligible b ased on patient's age to complete this topic Additional Health Concerns Infection Onset Date Last Indicated MRSA 08/01/2018 08/01/2018 Insurance Care Teams Dry Cans Operator Relationship Specialty Start Date End Date Napoleon Shabazz MD [address] [facility] [address] [address] PCP - General FAMILY PRACTICE 05/17/24
== END 2024-09-20 14:15 | disposition home or self-care (01) ==
LOC: ANHAUDIO 14:14
PROVIDERS: PCP Family Medicine; Visit Provider Nurse Practitioner Family
DX: H90.3 Sensorineural hearing loss, bilateral (principal); H93.13 Tinnitus, bilateral; H93.8X3 Other specified disorders of ear, bilateral; H74.8X3 Other specified disorders of middle ear and mastoid, bilateral; G43.909 Migraine, unspecified, not intractable, without status migrainosus; Z82.2 Family history of deafness and hearing loss
CPT/HCPCS: 92557; 92567

== ENCOUNTER 2024-12-12 08:45 | Outpatient (RCR) | payer OTHER, SELFPAY ==
--- NOTE | 2024-09-19 11:06 | PTOPEVAL1 ---
Assessment and note entered by Kendra Lopez, PT Evaluation Information Assessment Status Evaluation Diagnosis cervicalgia, migraine with aura ICD-10 Condition Codes (PT) Cervicalgia M54.2,Weakness R53.1 Other ICD-10 Condition Codes ( abnormal postures PT) Onset ~1.5 years Subjective Information Has x-ray shows arthritis in the neck, had an MRI of the brain which shows normal brain but sinuses. Has to fail therapy for the neck MRI, reports bone on bone multiple levels Did recieve a cortisone shot in her right shoulder and this was helpful ~3 months ago and still feels good. 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 Needs to listen to background noise versus quiet with ringing in her ears Reported Pain Level Pain Score 2,0: Self Report Assessment PT Clinical Summary Pt presents with history of migraines, and cervicalgia. She has history of multiple areas of arthritis and imaging showing cervical arthritis as well. Today she shows decreased cervical and thoracic ROM, abnormal postures with increased kyphosis and forward head posture, increased resting tone and tenderness multiple muscles including cervical spine, pectoralis, and scapular muscle groups. 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 Pt will benefit from physical therapy to address deficits, improve alignment and postural muscle strength and endurance, and reduce pain for improved function. Plan of Care Interventions Electrical Stimulation,Gait Training,Hot Pack/Cold Pack,Manual Therapy,Mechanical Traction,Neuro Re- education,Patient/Caregiver Education,Therapeutic Activities,Therapeutic Exercise,Self-Care/Home Management,Ultrasound,Other Other Interventions Taping, Home TENS PT Services Indicated Yes Treatment Frequency and 1-2x weekly x 12 visits Duration These treatments will address the objective and functional deficits as defined above. The patient will be advanced safely and appropriately in order for the patient to progress towards his/her prior level of function. Additional exercises will be introduced and as well as a comprehensive home exercise program upon discharge, if needed, ?to ensure carryover of functional gains achieved in the clinic. This treatment plan has been reviewed and agreement upon by the patient.
--- NOTE | 2024-09-19 11:07 | OPREHPOC ---
Outpatient Therapy Plan of Care This is a Multidisciplinary Plan of Care that may contain components documented by all disciplines (PT, OT, and ST.) PT Problem 1 PT Problem #1 Knowledge Deficit PT Goal 1 Goal / Goal Update Pt will be independent in HEP Pt will verbalize understanding of diagnosis and prognosis Target Visit 6 PT Problem 2 PT Problem #2 Pain PT Goal 1 Goal / Goal Update Pt will report lowest pain rating cervical spine at 0/10 to show improvement in overall discomfort Target Visit 6 PT Goal 2 Goal / Goal Update Pt will report greatest pain level at 3/10 or less to improve ADLs and activities Target Visit 12 PT Problem 3 PT Problem #3 Impaired Endurance PT Goal 1 Goal / Goal Update Pt will demonstrate appropriate postures in therapy session 75% of the time without cueing Target Visit 6 PT Goal 2 Goal / Goal Update Pt will report ability to maintain appropriate postures at work 50% or the time or greater to demonstrate improved endurance and application of knowledge in her day to day routine. Target Visit 12 PT Problem 4 PT Problem #4 Impaired Range of Motion PT Goal 1 Goal / Goal Update Pt will demonstrate cervical lateral flexion by 10 degrees Target Visit 6 PT Goal 2 Goal / Goal Update Pt will demonstrates thoracic lateral motion of 75 % or greater Target Visit 12
--- NOTE | 2024-10-21 16:48 | PTOPPROG ---
Assessment and note entered by Kendra Lopez, PT Evaluation Information Assessment Status Progress Diagnosis cervicalgia, migraine with aura ICD-10 Condition Codes (PT) Cervicalgia M54.2,Weakness R53.1 Other ICD-10 Condition Codes ( abnormal postures PT) Onset ~1.5 years Subjective Information Pt reports having increased pain after she left last session and had pain in the right side of neck up to behind her ear. Has a headache the next day but not bad enough to require emergency (PRN) pain medication. Still requires muscle relaxers at night to help sleep and is taking the lorazepam about the same amount of times as when starting therapy Therapy seems to have helped some, still has the headaches. Thinks may be taking the ubrelvy ( migraine medication) less Assessment PT Clinical Summary Pt has attended therapy consistently for neck pain and headaches. Her greatest pain level from her headaches decreased from 10/10 to a 5/10, and her neck pain decreased from 6/10 to 4/10. Cervical ROM has made minimal improvements, but reports feeling that therapy has helped her improve. Thoracic ROM has improved and posture has improved as well. She has made progress but has not plateaued and met her goals as of yet thus would benefit from continued therapy to continue improvement. Plan of Care Interventions Electrical Stimulation,Gait Training,Hot Pack/Cold Pack,Manual Therapy,Mechanical Traction,Neuro Re- education,Patient/Caregiver Education,Therapeutic Activities,Therapeutic Exercise,Self-Care/Home Management,Ultrasound,Other Other Interventions Taping, Home TENS PT Services Indicated Yes Treatment Frequency and 1-2x weekly x 12 visits Duration These treatments will address the objective and functional deficits as defined above. The patient will be advanced safely and appropriately in order for the patient to progress towards his/her prior level of function. Additional exercises will be introduced and as well as a comprehensive home exercise program upon discharge, if needed, ?to ensure carryover of functional gains achieved in the clinic. This treatment plan has been reviewed and agreement upon by the patient.
--- NOTE | 2024-12-07 08:45 | PTOPPROG ---
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 Reports is bearable with her medication. Assessment PT Clinical Summary Pt has attended therapy consistently for her neck pain with hopes would also improve her headaches/ migraines. Pt demonstrates some improvement over all with resting muscle tone and cervical alignment, UE motion improved with less strain on cervical spine, and though she has not reached a 0 /10 for her pain she has reduced to 1/10 at times with her neck pain and headaches. Pt cont to show decreased thoracic ROM and poor posturing with thoracic kyphosis and forward head posture. With taping, she has significant improvement in her pain. Thus patient will likely benefit from a TLSO for postural support and reduce strain on postural muscles while she continues to strengthen and address underlying ROM issues and muscle patterning. This last plan of care will e highly focused on thoracic mobilization and postural strengthening and support to reduce strain on cervical musculature and reduce overall pain symptoms. Plan of Care Interventions Electrical Stimulation,Gait Training,Hot Pack/Cold Pack,Manual Therapy,Mechanical Traction,Neuro Re- education,Patient/Caregiver Education,Therapeutic Activities,Therapeutic Exercise,Self-Care/Home Management,Ultrasound,Other Other Interventions Taping, Home TENS PT Services Indicated Yes Treatment Frequency and 1x2 x weekly x 6 visits focusing on home program Duration and independent maintenance These treatments will address the objective and functional deficits as defined above. The patient will be advanced safely and appropriately in order for the patient to progress towards his/her prior level of function. Additional exercises will be introduced and as well as a comprehensive home exercise program upon discharge, if needed, ?to ensure carryover of functional gains achieved in the clinic. This treatment plan has been reviewed and agreement upon by the patient.
== END 2024-12-18 23:59 | disposition home or self-care (01) ==
LOC: ANHHIPT 08:45
PROVIDERS: PCP Family Medicine; Visit Provider Nurse Practitioner Family
DX: M54.2 Cervicalgia (principal); G43.101 Migraine with aura, not intractable, with status migrainosus
CPT/HCPCS: 97012; 97014; 97035; 97110; 97112; 97140; 97162; 97750; G0283

== ENCOUNTER 2024-12-19 14:41 | Outpatient (CLI) | payer OTHER, SELFPAY ==
--- NOTE | ~2024-12-19 | XR_ITS ---
XR hip RT 2V w AP pelvis Ordering provider: LINDY CamarenaC History: . M25.551 - Pain in right hip . Comparison: None. FINDINGS: BONES: No acute fracture or dislocation. HIP JOINT SPACES: Normal. SACROILIAC JOINT SPACES/LUMBAR SPINE: The sacroiliac joint spaces are normal. Normal visualized lower lumbar spine. PUBIC SYMPHYSIS: Normal. SOFT TISSUES: Normal. IMPRESSION: No acute osseous abnormality pelvis and right hip. Reviewed, dictated and finalized at location A.
== END 2024-12-19 14:42 | disposition home or self-care (01) ==
LOC: ANHIMG 14:44
PROVIDERS: PCP Family Medicine; Visit Provider Nurse Practitioner Family
DX: M25.551 Pain in right hip (principal)
CPT/HCPCS: 73502

== ENCOUNTER 2025-01-17 06:55 | Outpatient (CLI) | payer OTHER, SELFPAY ==
--- NOTE | ~2025-01-17 | MR_ITS ---
MRI of the cervical spine Clinical History: Cervicalgia Technique: Axial T2-weighted and gradient images, and sagittal T1-weighted, T2-weighted, and STIR noy ges were acquired. Findings: There is no fracture or subluxation of the cervical spine. Vertebral bodies maintain normal height and alignment. No bone marrow signal abnormality seen. At C2-C3, there is mild degenerative distended. There is no significant disc bulge or herniation. No spinal canal stenosis, cord compression, or neural foraminal narrowing. At C3-C4, there is minimal disc osteophyte complex. No spinal canal stenosis, cord compression, or ne ural foraminal narrowing. At C4-C5, there is degenerative disc narrowing with minimal disc bulge. No spinal canal stenosis or c ord compression. Possible minimal bilateral neural foraminal narrowing. At C5-C6, there is moderate degenerative disc narrowing. There is minimal disc osteophyte complex. No spinal canal stenosis or cord compression. Possible mild bilateral neural foraminal narrowing, right worse than left. At C6-C7, there is moderate degenerative disc narrowing. There is minimal disc bulge. There is probab le mild bilateral neural foraminal narrowing. No canal stenosis or cord compression. No abnormal signal seen in the spinal cord. Paravertebral soft tissues are unremarkable. Impression: Moderate degenerative spondylosis overall, as detailed above. Reviewed, dictated and finalized at [facility]. Impression: Moderate degenerative spondylosis overall, as detailed above.
--- OUTSIDE RECORDS SUMMARY | 2025-01-17 06:59 | XMS_ITS | Encounter Summary ---
Author Organization [facility] Address [address] [place] [address] Care Team Providers Care Window Display Designer Name Role Phone Napoleon Shabazz MD Primary Care Provider +1- [phone] Encounter Details Date Type Department Care Team (Late st Contact Info) Description 02/21/2015 Abstract [facility] CONVERSION [address] [place] [address] , Generic ConversionMD Social History Tobacco Use Types Packs/Day Years Used Date Smoking Tobacco: Never Assessed Comments Unknown Sex and Gender Information Value Date Recorded Sex Assigned at Not on file Legal Sex Female 6:00 PM CDT Gender Identity Not on file Sexual Orientation Not on file documented as of this encounter Plan of Treatment Upcoming Encounters Date Type Department Care Team (Late Contact Info) Description 03/06/2025 9:00 AM CDT Office Visit [facility] - [place] [address] [place] [address] Shiva Waggoner PA [address] [place] [address] documented as of this encounter Visit Diagnoses Not on filedocumented in this encounter Additional Health Concerns Infection Onset Date Last Indicated Resolved Time MRSA 08/01/2018 08/01/2018 documented as of this encounter Care Teams Window Display Designer Relationship Specialty Start Date End Date Napoleon Shabazz MD [address] [facility] [address] [address] PCP - General FAMILY PRACTICE 05/17/24 documented as of this encounter
--- OUTSIDE RECORDS SUMMARY | 2025-01-17 06:59 | XMS_ITS | Clinical Summary ---
Author Organization [facility] Address [address] [place] [address] Care Team Providers Care Digital Sales Representative Name Role Phone Napoleon Shabazz MD Primary Care Provider +1- [phone] Medications topiramate (TOPAMAX) 100 MG tablet Take [...] total) by mouth as needed. Active Immunizations Immunization Administration Dates Next Due Tdap (Boostrix) 05/17/2024 [...] Comments Blood Pressure 107/74 05/17/2024 8:01 PM QUALITATIVE FIELD PROJECT MANAGER Pulse 66 05/17/2024 8:01 PM QUALITATIVE FIELD PROJECT MANAGER Temperature 36.3 C (97.3 F) 05/17/2024 8:01 PM QUALITATIVE FIELD PROJECT MANAGER Respiratory Rate 18 05/17/2024 8:01 PM QUALITATIVE FIELD PROJECT MANAGER Oxygen Saturation 99% 05/17/2024 8:01 PM QUALITATIVE FIELD PROJECT MANAGER Inhaled Oxygen Concentration - - Weight 67.1 kg (148 lb) 05/17/2024 5:58 PM QUALITATIVE FIELD PROJECT MANAGER Height 162.6 cm (5' 4) 05/17/2024 5:58 PM QUALITATIVE FIELD PROJECT MANAGER Body Mass Index 25.4 05/17/2024 5:58 PM QUALITATIVE FIELD PROJECT MANAGER Plan of Treatment Upcoming Encounters Date Type Department Care Team (Late st Contact Info) Description 03/06/2025 9:00 AM CDT Office Visit [facility] - [place] [address] [place] [address] Shiva Waggoner PA [address] [place] [address] Health Maintenance Due Date Last Done Comments Colorectal Cancer Screening Colonoscopy (10 Years) 1963 Annual Physical 12/27/1966 Hepatitis C 12/27/1981 Mammogram Screening 2003 Pneumococcal Vaccine: 50+ Years (1 of 1 - PCV) 12/27/2013 COVID-19 Vaccine (4 - 2023-2 5 season) 2024 04/28/2023, 06/22/2021, 09/20/2020 Zoster Vaccines (2 of 2) 06/01/2024 04/06/2024 [...] Date Last Indicated MRSA 08/01/2018 08/01/2018 Insurance [employer] Care Teams Digital Sales Representative Relationship Specialty Start Date End Date Napoleon Shabazz MD [address] [place] [address] [address] PCP - General FAMILY PRACTICE 05/17/24
== END 2025-01-17 06:56 | disposition home or self-care (01) ==
PROVIDERS: PCP Family Medicine; Visit Provider Nurse Practitioner Family
DX: M47.812 Spondylosis without myelopathy or radiculopathy, cervical region (principal); G43.101 Migraine with aura, not intractable, with status migrainosus
CPT/HCPCS: 72141

== ENCOUNTER 2025-06-14 09:00 | Outpatient (RCR) | payer OTHER, SELFPAY ==
--- NOTE | 2025-03-16 16:51 | PTOPEVAL1 ---
Assessment and note entered by Kendra Lopez, PT Evaluation Information Assessment Status Evaluation Diagnosis M25.551, M51.360 ICD-10 Condition Codes (PT) Pain in low back M54.50,Pain in right hip M25.551, Weakness R53.1 Subjective Information Saw Pain management for neck today as well. no shots yet. Got anxious talking about the needles with pain management and felt like she was going to pass out. Pt states Doctor says because pain is in the back of the hips is more likely from her low back. No MRI yet but is in the plans. Is also seeing Esdrasdena tomorrow. Talked about therapy0, chiropractic, massages, etc Standing long periods causes ow back to burn in the muscles, will have to ice and lay down to resolve this. Back brace helps a lot Reported Pain Level Pain Score 3,4: Self Report Assessment PT Clinical Summary Pt presents with complaints of back and dixie hip pain. Has been seen by this therapist previously for hip pain similar in nature though this does not appear related to iliotibial band as previously. Pt demonstrates decreased extension lumbar spine, decreased rotation to right, and standing alignment deficit with leg length discrepancy, and overall core weakness effecting lumbar stability. She has not been wearing her heel lift lately she reports, but her back brace does help with her pain. Manual lumbar distraction also improves pain. Pt will benefit from physical therapy in order to address deficits, reduce pain , educate patient on independent maintenance of progress, and improved overall quality of life and functional capability. Plan of Care Interventions Electrical Stimulation,Hot Pack/Cold Pack,Manual Therapy,Mechanical Traction,Neuro Re-education, Patient/Caregiver Education,Therapeutic Activities ,Therapeutic Exercise,Self-Care/Home Management, Ultrasound,Other Other Interventions Taping PT Services Indicated Yes Treatment Frequency and 2x weekly x 20 visits Duration These treatments will address the objective and functional deficits as defined above. The patient will be advanced safely and appropriately in order for the patient to progress towards his/her prior level of function. Additional exercises will be introduced and as well as a comprehensive home exercise program upon discharge, if needed, ?to ensure carryover of functional gains achieved in the clinic. This treatment plan has been reviewed and agreement upon by the patient.
--- NOTE | 2025-03-16 16:51 | OPREHPOC ---
Outpatient Therapy Plan of Care This is a Multidisciplinary Plan of Care that may contain components documented by all disciplines (PT, OT, and ST.) PT Goal 1 Goal / Goal Update Pt will be independent in HEP Pt will verbalize understanding of diagnosis and prognosis Target Visit 10 PT Problem 2 PT Problem #2 Pain PT Goal 1 Goal / Goal Update Pt will report lowest pain rating at 0/10 to show improvement in overall discomfort Target Visit 10 PT Goal 2 Goal / Goal Update Pt will report greatest pain level at 3/10 or less to improve ADLs and activities Target Visit 20 PT Goal 1 Goal / Goal Update Pt will demo core strength of 3+/5 of the TRAM to improve lumbopelvic stability Target Visit 10 PT Goal 2 Goal / Goal Update Pt will demo 4+/5 or greater strength in BLE to improve lumbopelvic stability and postural endurance Target Visit 20
--- NOTE | 2025-04-26 17:05 | PTOPPROG ---
Assessment and note entered by Kendra Lopez, PT Evaluation Information Assessment Status Progress Diagnosis M25.551, M51.360 ICD-10 Condition Codes (PT) Pain in low back M54.50,Pain in right hip M25.551, Weakness R53.1 Subjective Information Pt doesn't feel like she is getting any better. States when she was in therapy for her hips she noticed a difference but with her back is no difference. Hasn't been icing much, and reports used to do this and needs to do this at night. Has been using back brace and back still hurts. MRI of the neck but not the lower back. Reports is taking medication to control her pain. Is trying to eat better and staying away from pastas and inflammatory foods. she has her lifts and inserts now but had gotten away from these. Reports had a fall while was on vacation about a week and a half ago and feels like may still be feeling this. Assessment PT Clinical Summary Pt has attended therapy consistently for her low aback and hip pain. She reports feeling like she hasn't improved much since starting therapy but attributes this to the arthritis diagnosis. She does report 0/10 pain in the hips today which is improvement, though her back pain continues to remain at 2/10 at the lowest and 6/10 at the worst rating even with medication and use of her back brace. She is showing improvement in ROM of her lumbar spine and increased strength in the lumbopelvic region. Initiated mechanical traction today for a more sustained pull and in order to more accurately monitor resistance of traction for sustained progress. Pt will benefit from continued therapy to continue progressing strengthening and attempt to decompress lumbar spine with traction for improvement in overall pain and function. Plan of Care Interventions Electrical Stimulation,Hot Pack/Cold Pack,Manual Therapy,Mechanical Traction,Neuro Re-education, Patient/Caregiver Education,Therapeutic Activities ,Therapeutic Exercise,Self-Care/Home Management, Ultrasound,Other Other Interventions Taping PT Services Indicated Yes Treatment Frequency and 1-2x weekly x 10 visits Duration These treatments will address the objective and functional deficits as defined above. The patient will be advanced safely and appropriately in order for the patient to progress towards his/her prior level of function. Additional exercises will be introduced and as well as a comprehensive home exercise program upon discharge, if needed, ?to ensure carryover of functional gains achieved in the clinic. This treatment plan has been reviewed and agreement upon by the patient.
--- NOTE | 2025-06-14 13:39 | PTOPDC ---
Assessment and note entered by Kendra Lopez, PT Evaluation Information Assessment Status Discharge Diagnosis M25.551, M51.360 ICD-10 Condition Codes (PT) Pain in low back M54.50,Pain in right hip M25.551, Weakness R53.1 Subjective Information Pt reports was very busy over the holidays and had increased pain and was exhausted. Stretched and exercises helped reduce that discomfort. Wears her brace daily and this helps with activities. Diet for anti-inflammation foods is going well. Perceived improvement: really close is managing the pain. Feels like is at your peak. Used her new TENS unit and is making sure to use ice as directed and this has been helpful. Currently is without pain. During busy time did have to take a muscle relaxer. Has also changed her bed and is sleeping so much better and doesn't have hip pain when rolling over Using the shoe lift, new shoes, and traction have made a big difference Reported Pain Level Pain Score 0,0,0: Self Report Assessment PT Clinical Summary Pt has attended therapy consistently for her hip and back pain. She reports she feels she has reached her peak with therapy, that she currently has no pain, and when she does have pain, she has tools to decrease and resolve her pains. Feels her heel lift and the lumbar traction have been very helpful. She shows improved pelvic alignment taking into consideration leg length discrepancy, improved hip strength and flexibility as well. Pt has progressed in all her goals and met some of her goals. She is happy with her progress and appears to have the knowledge and tools to maintain her current functional and comfort levels . Pt is thus being discharged from therapy for completion of her plan. Plan of Care PT Services Indicated No
== END 2025-06-14 23:59 | disposition home or self-care (01) ==
LOC: ANHHIPT 09:00
PROVIDERS: PCP Family Medicine; Visit Provider Physician Assistant
DX: M25.551 Pain in right hip (principal); M51.360 Other intervertebral disc degeneration, lumbar region with discogenic back pain only
CPT/HCPCS: 97012; 97014; 97110; 97112; 97140; 97162; 97530; 97750; G0283